=== PATIENT | male | born 1990 | race Caucasian/White ===

== ENCOUNTER 2017-11-22 14:33 | Inpatient (IN) | payer OTHER ==
[~2017-11-22] VITALS: Ht 165.1 cm; Wt 111.7 kg
[~2017-11-22 14:33] MED LIST: CARB200T2 PO; LORA-445 PO; PHEN100C PO
[2017-11-22] MEDS ORDERED: LORazepam 2 MG/ML, 1ML IVPush ONE (15:30)
[2017-11-22] MEDS ORDERED: SODIUM CHLORIDE 0.9% 1,000ML IVBOLUS ONE (15:30)
[2017-11-22 15:39] LABS: BASOPHILS # (AUTO) 0.01 x10^3/uL (0-0.1); BASOPHILS % (AUTO) 0 % (0-1); EOSINOPHILS # (AUTO) 0.02 x10^3/uL (0-0.4); EOSINOPHILS % (AUTO) 0 % (1-7); LYMPHOCYTES # (AUTO) 0.69 x10^3/uL (1-3.4); LYMPHOCYTES % (AUTO) 7 % (22-44); MD NO; MEAN CORPUSCULAR HEMOGLOBIN 30.5 pg (27.5-34.5); MEAN CORPUSCULAR HGB CONC 34.4 g/dL (33.2-36.2); MEAN CORPUSCULAR VOLUME 88.8 fL (81-97); MEAN PLATELET VOLUME 7.4 fL (7.4-10.4); MONOCYTES # (AUTO) 0.35 x10^3/uL (0.2-0.8); MONOCYTES % (AUTO) 4 % (2-9); NEUTROPHILS # (AUTO) 9.18 x10^3/uL (1.8-6.8); NEUTROPHILS % (AUTO) 90 % (42-75); PLATELET COUNT 331 x10^3/uL (130-400); RED BLOOD COUNT 5.64 x10^6/uL (4.38-5.82); RED CELL DISTRIBUTION WIDTH 13.1 % (9.4-14.8)
[2017-11-22 15:48] LABS: ALBUMIN 4.2 g/dL (3.4-5.0); ANION GAP 12 mmol/L (5-15); CALCIUM 8.7 mg/dL (8.5-10.1); CHLORIDE 109 mmol/L (98-107); CREATININE 1.22 mg/dL (0.7-1.3)
[2017-11-22] MEDS ORDERED: IBUPROFEN 200 MG TABLET ONE (16:19)
[2017-11-22] MEDS ORDERED: LORazepam 2 MG/ML, 1ML ONE (16:19)
[2017-11-22] MEDS ORDERED: IBUPROFEN 200 MG TABLET PO ONE (16:30)
[2017-11-22] MEDS ORDERED: ONDANSETRON 2MG/ML, 2ML IVPush PRN (19:30)
[2017-11-22] MEDS ORDERED: BISACODYL 10 MG SUPP PR PRN (19:30)
[2017-11-22] MEDS ORDERED: POLYETHYLENE GLYCOL 17 GM PACKET PO PRN (19:30)
[2017-11-22] MEDS ORDERED: ACETAMINOPHEN 325 MG TABLET PO PRN (19:30)
[2017-11-22] MEDS ORDERED: HEPARIN 5,000 UNITS/ML, 1ML ONE (20:08)
[2017-11-22] MEDS: HEPARIN 5,000 UNITS/ML, 1ML SQ SCH (20:22)
[2017-11-22 21:20] LABS: AMPHETAMINE SCREEN, URINE Negative (Negative); BARBITURATE SCREEN, URINE Negative (Negative); BENZODIAZEPINE SCREEN, URINE Negative (Negative); CANNABINOID SCREEN, URINE Negative (Negative); COCAINE SCREEN, URINE Negative (Negative); METHADONE SCREEN, URINE Negative (Negative); OPIATE SCREEN, URINE Negative (Negative)
[2017-11-22 21:50] VITALS: BP 130/75
[2017-11-22] MEDS: SODIUM CHLORIDE FLUSH 10ML SYR IVF SCH (23:45)
[2017-11-22] MEDS: PHENYTOIN 100 MG CAPSULE PO SCH (23:46)
[2017-11-22] MEDS: CARBAMAZEPINE XR 200 MG TABLET PO SCH (23:46)
[2017-11-23 01:18] VITALS: BP 108/71
[2017-11-23] MEDS: HEPARIN 5,000 UNITS/ML, 1ML SQ SCH ×2 (04:46→11:30)
[2017-11-23 05:38] LABS: BASOPHILS # (AUTO) 0.02 x10^3/uL (0-0.1); BASOPHILS % (AUTO) 0 % (0-1); EOSINOPHILS # (AUTO) 0.06 x10^3/uL (0-0.4); EOSINOPHILS % (AUTO) 1 % (1-7); LYMPHOCYTES # (AUTO) 0.92 x10^3/uL (1-3.4); LYMPHOCYTES % (AUTO) 14 % (22-44); MD NO; MEAN CORPUSCULAR HEMOGLOBIN 30.4 pg (27.5-34.5); MEAN CORPUSCULAR HGB CONC 34.2 g/dL (33.2-36.2); MEAN CORPUSCULAR VOLUME 88.7 fL (81-97); MEAN PLATELET VOLUME 7.4 fL (7.4-10.4); MONOCYTES # (AUTO) 0.71 x10^3/uL (0.2-0.8); MONOCYTES % (AUTO) 11 % (2-9); NEUTROPHILS # (AUTO) 5.04 x10^3/uL (1.8-6.8); NEUTROPHILS % (AUTO) 75 % (42-75); PLATELET COUNT 226 x10^3/uL (130-400); RED CELL DISTRIBUTION WIDTH 13.1 % (9.4-14.8)
[2017-11-23 05:43] LABS: CHLORIDE 109 mmol/L (98-107)
[2017-11-23 05:50] LABS: ALANINE AMINOTRANSFERASE 42 U/L (12-78); ALBUMIN 3.6 g/dL (3.4-5.0); ALKALINE PHOSPHATASE 79 U/L (45-117); ANION GAP 6 mmol/L (5-15); BILIRUBIN,TOTAL 0.7 mg/dL (0.2-1.0); CALCIUM 8.3 mg/dL (8.5-10.1); CREATININE 1.29 mg/dL (0.7-1.3); TOTAL PROTEIN 6.7 g/dL (6.4-8.2)
[2017-11-23 07:10] VITALS: BP 117/76
[2017-11-23] MEDS: SODIUM CHLORIDE FLUSH 10ML SYR IVF SCH (09:00)
[2017-11-23] MEDS ORDERED: SENNA/DOCUSATE TABLET PO SCH (09:00)
[2017-11-23] MEDS: CARBAMAZEPINE XR 200 MG TABLET PO SCH (09:42)
[2017-11-23] MEDS: PHENYTOIN 100 MG CAPSULE PO SCH (09:43)
[2017-11-23 15:23] VITALS: BP 110/71
[2017-11-23] MEDS ORDERED: CARB200T2 PO (17:17)
[2017-11-23] MEDS ORDERED: PHEN100C PO (17:17)
== END 2017-11-23 18:49 | disposition home or self-care (01) | DRG 101 ==
LOC: ED 18:45 → EDIP 18:46 → ED 20:12 → 4NOR 21:30
PROVIDERS: ADMIT Family Medicine; ATTEND Family Medicine
DX: G40.409 Other generalized epilepsy and epileptic syndromes, not intractable, without status epilepticus (principal); E87.2 Acidosis; D72.829 Elevated white blood cell count, unspecified; K59.00 Constipation, unspecified
CPT/HCPCS: 36415; 80048; 80053; 80156; 80185; 80307; 82040; 85025; 93005; 95812; 96361; 96374; J1644; J2060; J7030

== ENCOUNTER 2018-04-28 05:38 | Inpatient (IN) | payer OTHER ==
[~2018-04-28] VITALS: Ht 177.8 cm; Wt 108.0 kg
[2018-04-28] MEDS ORDERED: LEVE100020 PO (06:03)
[2018-04-28 06:57] LABS: BASOPHILS # (AUTO) 0.01 x10^3/uL (0-0.1); BASOPHILS % (AUTO) 0 % (0-1); EOSINOPHILS # (AUTO) 0.06 x10^3/uL (0-0.4); EOSINOPHILS % (AUTO) 1 % (1-7); LYMPHOCYTES # (AUTO) 0.66 x10^3/uL (1-3.4); LYMPHOCYTES % (AUTO) 8 % (22-44); MD NO; MEAN CORPUSCULAR HEMOGLOBIN 30.2 pg (27.5-34.5); MEAN CORPUSCULAR HGB CONC 34.2 g/dL (33.2-36.2); MEAN CORPUSCULAR VOLUME 88.4 fL (81-97); MEAN PLATELET VOLUME 7.4 fL (7.4-10.4); MONOCYTES # (AUTO) 0.73 x10^3/uL (0.2-0.8); MONOCYTES % (AUTO) 9 % (2-9); NEUTROPHILS # (AUTO) 6.37 x10^3/uL (1.8-6.8); NEUTROPHILS % (AUTO) 81 % (42-75); PLATELET COUNT 266 x10^3/uL (130-400); RED BLOOD COUNT 4.31 x10^6/uL (4.38-5.82); RED CELL DISTRIBUTION WIDTH 12.8 % (9.4-14.8)
[2018-04-28 07:06] LABS: ALANINE AMINOTRANSFERASE 98 U/L (12-78); ALBUMIN 3.3 g/dL (3.4-5.0); ANION GAP 7 mmol/L (5-15); CALCIUM 8.7 mg/dL (8.5-10.1); CHLORIDE 107 mmol/L (98-107); CREATININE 0.61 mg/dL (0.7-1.3)
[2018-04-28 07:09] LABS: ALKALINE PHOSPHATASE 89 U/L (45-117); BILIRUBIN,TOTAL 0.6 mg/dL (0.2-1.0)
[2018-04-28] MEDS ORDERED: LEVETIRACETAM 500 MG TABLET ONE (09:54)
[2018-04-28] MEDS ORDERED: LEVETIRACETAM 500 MG TABLET PO ONE (10:00)
[2018-04-28 10:16] VITALS: BP 124/73
[2018-04-28] MEDS ORDERED: LEVETIRACETAM 500 MG TABLET PO SCH (10:30)
[2018-04-28] MEDS: CARBAMAZEPINE XR 200 MG TABLET PO SCH ×2 (10:30→20:06)
[2018-04-28] MEDS ORDERED: LORazepam 0.5MG TABLET PO SCH (10:30)
[2018-04-28] MEDS: PHENYTOIN 100 MG CAPSULE PO SCH ×2 (10:30→20:06)
[2018-04-28 12:51] VITALS: BP 122/77
[2018-04-28] MEDS: SODIUM CHLORIDE 0.9% 1,000 ML IV SCH ×2 (12:57→22:54)
[2018-04-28] MEDS ORDERED: ONDANSETRON ODT 4 MG PO PRN (13:00)
[2018-04-28] MEDS ORDERED: LABETALOL 5MG/ML, 20ML IVPush PRN (13:00)
[2018-04-28] MEDS ORDERED: ONDANSETRON 2MG/ML, 2ML IVPush PRN (13:00)
[2018-04-28] MEDS ORDERED: ACETAMINOPHEN 325 MG TABLET PO PRN (13:00)
[2018-04-28] MEDS ORDERED: DOCUSATE 100 MG CAPSULE PO PRN (13:00)
[2018-04-28] MEDS ORDERED: BISACODYL 10 MG SUPP PR PRN (13:00)
[2018-04-28] MEDS ORDERED: POLYETHYLENE GLYCOL 17 GM PACKET PO PRN (13:00)
[2018-04-28 15:04] LABS: FREE T4 (FREE THYROXINE) 0.98 ng/dL (0.76-1.46); THYROID STIMULATING HORMONE 0.993 mIU/L (0.358-3.740)
[2018-04-28 15:09] LABS: HEMOGLOBIN A1C 4.6 % (4.2-6.3)
[2018-04-28 19:08] VITALS: BP 128/74
[2018-04-28] MEDS ORDERED: LORazepam 0.5MG TABLET PO PRN (20:00)
[2018-04-28] MEDS: LEVETIRACETAM 500 MG TABLET PO SCH (20:07)
[2018-04-28 20:26] LABS: MICROSCOPIC NOT IND
[2018-04-28 20:30] LABS: CULTURE INDICATED? NO
[2018-04-29 03:06] VITALS: BP 111/58
[2018-04-29 05:35] LABS: CHLORIDE 107 mmol/L (98-107)
[2018-04-29 05:51] LABS: ALANINE AMINOTRANSFERASE 74 U/L (12-78); ALBUMIN 2.9 g/dL (3.4-5.0); ALKALINE PHOSPHATASE 79 U/L (45-117); ANION GAP 7 mmol/L (5-15); BILIRUBIN,TOTAL 0.6 mg/dL (0.2-1.0); CALCIUM 8.3 mg/dL (8.5-10.1); CHOL/HDL RATIO 5.4; CHOLESTEROL, TOTAL 179 mg/dL (140-239); CREATININE 0.61 mg/dL (0.7-1.3); HDL CHOL % 18 % (26-37); HDL CHOLESTEROL (DIRECT) 33 mg/dL (40-60); LDL CHOLESTEROL,CALCULATED 119 mg/dL (54-169); LDL/HDL RATIO 3.6 (0.5-3.0); TOTAL PROTEIN 6.6 g/dL (6.4-8.2); TRIGLYCERIDES 133 mg/dL (50-200); VLDL CHOLESTEROL 27 mg/dL (0-25)
[2018-04-29 05:56] LABS: BASOPHILS # (AUTO) 0.02 x10^3/uL (0-0.1); BASOPHILS % (AUTO) 1 % (0-1); EOSINOPHILS # (AUTO) 0.16 x10^3/uL (0-0.4); EOSINOPHILS % (AUTO) 3 % (1-7); LYMPHOCYTES % (AUTO) 25 % (22-44); MD NO; MEAN CORPUSCULAR HEMOGLOBIN 30.6 pg (27.5-34.5); MEAN CORPUSCULAR VOLUME 89.8 fL (81-97); MEAN PLATELET VOLUME 7.6 fL (7.4-10.4); MONOCYTES # (AUTO) 0.62 x10^3/uL (0.2-0.8); MONOCYTES % (AUTO) 12 % (2-9); NEUTROPHILS # (AUTO) 3.21 x10^3/uL (1.8-6.8); NEUTROPHILS % (AUTO) 60 % (42-75); PLATELET COUNT 237 x10^3/uL (130-400); RED BLOOD COUNT 4.09 x10^6/uL (4.38-5.82); RED CELL DISTRIBUTION WIDTH 13.1 % (9.4-14.8)
[2018-04-29 08:00] VITALS: BP 128/74
[2018-04-29] MEDS: LEVETIRACETAM 500 MG TABLET PO SCH (08:27)
[2018-04-29] MEDS: PHENYTOIN 100 MG CAPSULE PO SCH (08:27)
[2018-04-29] MEDS: CARBAMAZEPINE XR 200 MG TABLET PO SCH (08:27)
[2018-04-29] MEDS ORDERED: LEVE10007 PO (11:00)
== END 2018-04-29 11:53 | disposition home or self-care (01) | DRG 101 ==
LOC: ED 08:10 → EDIP 08:27 → 3NE 10:01
PROVIDERS: ADMIT Internal Medicine; ATTEND Internal Medicine
DX: G40.209 Localization-related (focal) (partial) symptomatic epilepsy and epileptic syndromes with complex partial seizures, not intractable, without status epilepticus (principal); E44.0 Moderate protein-calorie malnutrition; D50.9 Iron deficiency anemia, unspecified; Z79.899 Other long term (current) drug therapy; Z87.81 Personal history of (healed) traumatic fracture; Z87.828 Personal history of other (healed) physical injury and trauma; Z68.34 Body mass index [BMI] 34.0-34.9, adult
CPT/HCPCS: 36415; 71045; 80053; 80061; 80185; 81003; 82140; 82550; 83036; 83735; 84439; 84443; 85025; 93005; 95819; 99285; J7030

== ENCOUNTER → 2018-05-11 | Outpatient (CLI) | payer OTHER ==
[~2018-05-11] MED LIST changes: +LEVE100020 PO; +LEVE10007 PO
== END | disposition home or self-care (01) ==
LOC: RAD 13:29
PROVIDERS: ATTEND Surgery
DX: S22.41XA Multiple fractures of ribs, right side, initial encounter for closed fracture (principal); S37.812A Contusion of adrenal gland, initial encounter; X58.XXXA Exposure to other specified factors, initial encounter; Y93.89 Activity, other specified; Y92.89 Other specified places as the place of occurrence of the external cause; Y99.8 Other external cause status
CPT/HCPCS: 71046

== ENCOUNTER 2019-09-11 07:21 | Emergency (ER) | payer MEDICAID, OTHER ==
[~2019-09-11] VITALS: Ht 165.1 cm; Wt 9.3 kg
--- NOTE | 2019-09-11 08:25 | NUR ---
PT RESTING IN [facility] ON SEIZURE PRECAUTIONS AND ON MONITOR, NO NEEDS AT THIS TIME. AWAITING LAB RESULTS. NO S/SXS OF ANY SEIZURE ACTIVITY IN ED.
[2019-09-11 08:30] LABS: BASOPHILS # (AUTO) 0.02 x10^3/uL (0-0.1); BASOPHILS % (AUTO) 0 % (0-1); EOSINOPHILS # (AUTO) 0.06 x10^3/uL (0-0.4); EOSINOPHILS % (AUTO) 1 % (1-7); LYMPHOCYTES # (AUTO) 0.87 x10^3/uL (1-3.4); LYMPHOCYTES % (AUTO) 15 % (22-44); MD NO; MEAN CORPUSCULAR HEMOGLOBIN 30.4 pg (27.5-34.5); MEAN CORPUSCULAR HGB CONC 33.4 g/dL (33.2-36.2); MEAN PLATELET VOLUME 6.8 fL (7.4-10.4); MONOCYTES # (AUTO) 0.35 x10^3/uL (0.2-0.8); MONOCYTES % (AUTO) 6 % (2-9); NEUTROPHILS # (AUTO) 4.41 x10^3/uL (1.8-6.8); NEUTROPHILS % (AUTO) 77 % (42-75); PLATELET COUNT 256 x10^3/uL (130-400); RED BLOOD COUNT 5.21 x10^6/uL (4.38-5.82); RED CELL DISTRIBUTION WIDTH 13.2 % (9.4-14.8)
[2019-09-11 08:44] LABS: ALANINE AMINOTRANSFERASE 55 U/L (12-78); ALBUMIN 3.7 g/dL (3.4-5.0); ANION GAP 5 mmol/L (5-15); CALCIUM 8.6 mg/dL (8.5-10.1); CHLORIDE 109 mmol/L (98-107); CREATININE 0.94 mg/dL (0.7-1.3)
[2019-09-11 08:59] LABS: ALKALINE PHOSPHATASE 82 U/L (45-117); BILIRUBIN,TOTAL 0.3 mg/dL (0.2-1.0); TOTAL PROTEIN 7.1 g/dL (6.4-8.2)
[2019-09-11 09:33] VITALS: BP 114/58
--- NOTE | 2019-09-11 09:34 | NUR ---
PT RESTING IN GURNEY, AWAITING LABS. PT RESTING IN GURNEY WITH FAMILY AT BEDSIDE. NO NEEDS AT THIS TIME. CALL LIGHT WITHIN REACH.
== END 2019-09-11 10:38 | disposition home or self-care (01) ==
LOC: ED 09:15
DX: G40.509 Epileptic seizures related to external causes, not intractable, without status epilepticus (principal); F17.220 Nicotine dependence, chewing tobacco, uncomplicated; Z79.899 Other long term (current) drug therapy
CPT/HCPCS: 36415; 80053; 80156; 80185; 85025; 93005; 99284